=== PATIENT | female | born 1990 | race Caucasian/White ===

== ENCOUNTER 2017-01-03 09:02 | Emergency (ER) | payer MEDICAID ==
[~2017-01-03] VITALS: Ht 160 cm; Wt 63.5 kg
--- NOTE | 2017-01-03 10:07 | Urgent Treatment Center Report ---
History of Present Issue Date/Time Seen by Provider 01/03/17 0937 Visit Reason Pt arrived:Walked Presenting Problem:PT STATES COUGH, BODY ACHES, SORE THROAT AND FEVER THAT BEGAN TUESDAY NIGHT. STATES TAKING DAYQUIL AT 0700 WITH MINIMAL RELIEF. Location if Accident: Onset of symptoms date/time:01/02/17/ or onset unknown for:MEDICAL HX UNKNOWN Have you (or family members/close friends) recently traveled outside the [place]? N If Yes, where/when: Have you had exposure to infectious disease within the past month? TB? Other? Specify: c/o bodyaches, chills, fever starting late Tuesday into Tuesday, <36 hours ago. "Started so suddenly". Sore throat w/ coughing. Unsure of Tmax but 100.7 this morning before dayquil. Last dose 0700. Ibuprofen has helped as well. ST 3, intermittent, worse after coughing. Denies SOA or wheezing. Child's father + flu. her father and son have both been ill w/ similiar symptoms but not sure of diagnosis. Has not had flu vaccine. Source patient Exam Limitations no limitations ALLERGIES Coded Allergies: No Known Allergies (01/03/17) Home Medications Reported Medications No Known Home Medications History Medical History General CAD? No Angina: No [place]: No Hypertension? No Hyperlipidemia? No CHF? No DVT? No PE? No COPD? No Asthma? No Anemia? No GERD? No Gastric ulcers? No GI Bleed? No Hernia? No Thyroid Problems? No Hypothyroidism? No CVA? No Seizures? No Diabetes? No Renal Insuffiency? No UTI? No Stones? No GB Disease: No Nephritic Syndrome? No Asplenia? No Hepatitis? No Sickle Cell Disease? No Arthritis? No Migraines? No Cataracts? No Glaucoma? No MRSA? No HIV? No TB? No Anxiety? No Depression? No Cancer? 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 denies: ear pain, nose congestion. Respiratory see HPI Cardiovascular denies chest pain Gastrointestinal denies no symptoms reported Musculoskeletal see HPI Skin denies rash Psychiatric/Neurological denies no symptoms reported Physical Exam Vital Signs Vital Signs Date Time Temp Pulse Resp B/P Pulse O2 O2 Flow FiO2 Ox Delivery Rate 01/03 0918 99.0 77 20 108/68 99 General Appearance normal appearance, no apparent distress Eye Exam - bilateral eye normal exam Ear, Nose, Throat normal ENT inspection Neck non-tender, supple Respiratory Status No: respiratory distress (no witnessed cough). Lung Sounds anterior: lungs clear. posterior: lungs clear. bilateral: lungs clear. Cardiovascular regular rate/rhythm, no murmur Neurologic alert Skin warm/dry Lymphatic no adenopathy (cervical) Medical Decision Making LABS/Meds/Orders Pt receiving controlled substance in ED? No Results/Orders Laboratory Tests 01/03/17 1002: Influenza Type A Ag DETECTED H, Influenza Type B Ag NOT DETECTED Orders Procedure Date/time Status [facility] FLU A,B 01/03 1002 Complete Departure Departure Time of Disposition 1039 Disposition DC Home or Self Care(routine) Clinical Impression Primary Impression: Influenza A Condition STABLE Referrals Cesar Angulo (Family) Immediately for new or worsening symptoms or if no noticeable improvement over the next 3-4 days. Patient Instructions DI for Influenza -- Adult, Oseltamivir Additional Instructions Tamiflu may or may not change symptoms as we discussed. It is not required to feel better. Increase fluids Rest Alternate tylenol/ibuprofen as discussed for fever/pain warm salt water gargles warm fluids to drink Ok to continue dayquil/nyquil just monitor amount of tylenol/ibuprofen as some contain these ingrediants. monitor symptoms. Seek treatment immediately for new or worsening symptoms or if no improvement over the next 72 hours. You are contagious until you have had no fever, bodyaches, chills for 24 hours without medication. Protect yourself and those around you. Discharge Counseling Counseled pt/family regarding diagnosis, test results, medications/RX, home care, follow up needs Prescriptions Current Visit Scripts Oseltamivir Phosphate (Tamiflu 75MG Capsule) 75 MG PO BID #10 CAP at 104
--- NOTE | 2017-01-03 10:07 | Urgent Treatment Center Report ---
History of Present Issue Date/Time Seen by Provider 01/03/17 0907 Visit Reason Pt arrived:Walked Presenting Problem:PT STATES COUGH, BODY ACHES, SORE THROAT AND FEVER THAT BEGAN TUESDAY NIGHT. STATES TAKING DAYQUIL AT 0700 WITH MINIMAL RELIEF. Location if Accident: Onset of symptoms date/time:01/02/17/ or onset unknown for:MEDICAL HX UNKNOWN Have you (or family members/close friends) recently traveled outside the [place]? N If Yes, where/when: Have you had exposure to infectious disease within the past month? TB? Other? Specify: c/o bodyaches, chills, fever starting late Tuesday into Tuesday, <36 hours ago. "Started so suddenly". Sore throat w/ coughing. Unsure of Tmax but 100.7 this morning before dayquil. Last dose 0700. Ibuprofen has helped as well. ST 3, intermittent, worse after coughing. Denies SOA or wheezing. Child's father + flu. her father and son have both been ill w/ similiar symptoms but not sure of diagnosis. Has not had flu vaccine. Source patient Exam Limitations no limitations ALLERGIES Coded Allergies: No Known Allergies (01/03/17) Home Medications Reported Medications No Known Home Medications History Medical History General CAD? No Angina: No PR: No Hypertension? No Hyperlipidemia? No CHF? No DVT? No PE? No COPD? No Asthma? No Anemia? No GERD? No Gastric ulcers? No GI Bleed? No Hernia? No Thyroid Problems? No Hypothyroidism? No CVA? No Seizures? No Diabetes? No Renal Insuffiency? No UTI? No Stones? No GB Disease: No Nephritic Syndrome? No Asplenia? No Hepatitis? No Sickle Cell Disease? No Arthritis? No Migraines? No Cataracts? No Glaucoma? No MRSA? No HIV? No TB? No Anxiety? No Depression? No Cancer? 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 denies: ear pain, nose congestion. Respiratory see HPI Cardiovascular denies chest pain Gastrointestinal denies no symptoms reported Musculoskeletal see HPI Skin denies rash Psychiatric/Neurological denies no symptoms reported Physical Exam Vital Signs Vital Signs Date Time Temp Pulse Resp B/P Pulse O2 O2 Flow FiO2 Ox Delivery Rate 01/03 0918 99.0 77 20 108/68 99 General Appearance normal appearance, no apparent distress Eye Exam - bilateral eye normal exam Ear, Nose, Throat normal ENT inspection Neck non-tender, supple Respiratory Status No: respiratory distress (no witnessed cough). Lung Sounds anterior: lungs clear. posterior: lungs clear. bilateral: lungs clear. Cardiovascular regular rate/rhythm, no murmur Neurologic alert Skin warm/dry Lymphatic no adenopathy (cervical) Medical Decision Making LABS/Meds/Orders Pt receiving controlled substance in ED? No Results/Orders Laboratory Tests 01/03/17 1002: Influenza Type A Ag DETECTED H, Influenza Type B Ag NOT DETECTED Orders Procedure Date/time Status [facility] FLU A,B 01/03 1002 Complete Departure Departure Time of Disposition 1039 Disposition DC Home or Self Care(routine) Clinical Impression Primary Impression: Influenza A Condition STABLE Referrals Cesar Angulo (Family) Immediately for new or worsening symptoms or if no noticeable improvement over the next 3-4 days. Patient Instructions DI for Influenza -- Adult, Oseltamivir Additional Instructions Tamiflu may or may not change symptoms as we discussed. It is not required to feel better. Increase fluids Rest Alternate tylenol/ibuprofen as discussed for fever/pain warm salt water gargles warm fluids to drink Ok to continue dayquil/nyquil just monitor amount of tylenol/ibuprofen as some contain these ingrediants. monitor symptoms. Seek treatment immediately for new or worsening symptoms or if no improvement over the next 72 hours. You are contagious until you have had no fever, bodyaches, chills for 24 hours without medication. Protect yourself and those around you. Discharge Counseling Counseled pt/family regarding diagnosis, test results, medications/RX, home care, follow up needs Prescriptions Current Visit Scripts Oseltamivir Phosphate (Tamiflu 75MG Capsule) 75 MG PO BID #10 CAP at 104
[2017-01-03] MEDS ORDERED: TAMIFLU 75MG CA75 MG PO (10:42)
[2017-01-03 10:50] VITALS: BP 108/68
== END 2017-01-03 10:51 | disposition home or self-care (01) ==
LOC: UTC 09:02
DX: J09.X2 Influenza due to identified novel influenza A virus with other respiratory manifestations (principal)